=== PATIENT | female | born 1935 | race Caucasian/White ===

== ENCOUNTER 2020-04-08 20:40 | Inpatient (IN) ==
[2020-04-08] MEDS ORDERED: SODIUM CHLORIDE 0.9% 1,000 ML IV STA ×2 (21:04→23:11)
[2020-04-08 21:14] LABS: Basophils # 0.1 10*3/uL (0.0-0.2); Basophils % 0.4 % (0.0-0.8); Hematocrit 41.7 VOL% (35.7-47.0); Hemoglobin 13.8 GM/DL (12.0-16.0); Immature Granulocytes % 1.4 %; Immature Granulocytes Absolute 0.39 #; Lymphocytes % 7.3 % (21.3-54.2); Mean Corpuscular HGB Conc 33.1 GM/DL (32-36); Mean Corpuscular Volume 92.5 FL (87-102); Mean Platelet Volume 11.1 FL (9.6-12.0); Monocytes % 5.1 % (1.7-12.7); Neutrophils % 85.8 % (38.7-73.9); Platelet Count 207 T/CUMM (130-400); Red Blood Count 4.51 MC/CUMM (3.8-5.5); Red Cell Distribution Width 13.2 % (9.3-17.3); White Blood Count 27.3 T/CUMM (4-12)
[2020-04-08 21:25] LABS: INR 1.1; PT Patient Result 11.5 SECS (9.8-11.9); Partial Thromboplastin Time 27.1 SECS (23.9-33.8)
[2020-04-08 21:27] LABS: Lymphocytes 3 % (20-55); Segmented Neutrophils 93 % (50-85); Total Cells Counted 100
[2020-04-08 21:28] LABS: Stomatocytes 2+; Toxic Granulation 2+
[2020-04-08 21:29] LABS: Alanine Aminotransferase 28 U/L (13-56); Albumin 2.7 G/DL (3.4-5.0); Alkaline Phosphatase 70 U/L (45-117); Aspartate Amino Transferase 26 U/L (0-37); Blood Urea Nitrogen 31 MG/DL (7-18); Calcium 8.6 MG/DL (8.5-10.1); Estimated Glom Filtration Rate 32 ML/MIN; Glucose 173 MG/DL (74-106); Osmolality,Calculated 270.8 MOS/KG (273-304); Total Protein 6.6 G/DL (6.4-8.3); Troponin I < 0.015 NG/ML (0.00-0.045)
[2020-04-08 21:30] LABS: Platelet Estimate Normal
[2020-04-08 21:39] LABS: Thyroid Stimulating Hormone 0.565 uIU/ml (0.358-3.74)
[2020-04-08 22:52] LABS: Bacteria,Urine Many /HPF (Few); Bilirubin,Urine Negative (Negative); Blood, Urine Small mg/dL (Negative); Glucose,Urine (UA) Negative (Negative); Hyaline Casts,Urine 21 /LPF (0-3); Ketones,Urine 5 mg/dL (Negative); Mucus,Urine Occasional /LPF (Occasional); Nitrite,Urine Negative (Negative); Protein,Urine 100 MG/DL; RBC,Urine 22 /HPF (0-4); Squamous Epithelial Cell,Urine Occasional /HPF (0-10); Urine Appearance CLOUDY (Clear); Urine Color Amber (Yellow); Urine Specific Gravity 1.012 (1.001-1.035); Urine Urobilinogen < 2.0 EU/DL (0.2-1.0); WBC,Urine 274 /HPF (0-6)
[2020-04-08] MEDS ORDERED: LEVOFLOXACIN INJ 750 MG in PREMIX 1 EACH IV STA (23:02)
[2020-04-08] MEDS ORDERED: DILTIAZEM 25 MG/5 ML VIAL IV ONE (23:11)
[2020-04-08] MEDS ORDERED: DILTIAZEM 50 MG/10 ML VIAL IV STA (23:11)
[2020-04-09] MEDS ORDERED: ACETAMINOPHEN 325 MG TABLET PO PRN (00:40)
[2020-04-09] MEDS ORDERED: ONDANSETRON 4 MG/2 ML VIAL IV PRN (00:40)
[2020-04-09] MEDS: SODIUM CHLORIDE 0.9% 1,000 ML IV SCH ×3 (03:29→19:12)
[2020-04-09] MEDS ORDERED: GLUCAGON 1 MG VIAL IM PRN (07:14)
[2020-04-09] MEDS ORDERED: DEXTROSE 50% 25 GM/50 ML VIAL IV PRN (07:14)
[2020-04-09] MEDS ORDERED: SODIUM CHLORIDE 0.9% 1,000 ML IV STA (07:16)
[2020-04-09] MEDS: MEROPENEM 500 MG in SODIUM CHLORIDE 0.9% 100 ML IV SCH ×2 (07:45→19:07)
[2020-04-09] MEDS ORDERED: propofoL 200 MG/20 ML VIAL IV ONE (08:31)
[2020-04-09] MEDS ORDERED: PHENYLEPHRINE 1 MG/10 ML SYRINGE IV ONE (08:31)
[2020-04-09] MEDS ORDERED: LIDOCAINE 1% 5 ML VIAL ONE (08:32)
[2020-04-09] MEDS ORDERED: fentaNYL 100 MCG/2 ML VIAL ONE (08:32)
[2020-04-09] MEDS ORDERED: ePHEDrine 50 MG/ML VIAL ONE (08:32)
[2020-04-09] MEDS ORDERED: MIDAZOLAM 2 MG/2 ML VIAL ONE (08:32)
[2020-04-09] MEDS: INSULIN LISPRO 100 UNIT/ML SUBCUT SCH ×4 (08:34→21:54)
[2020-04-09] MEDS ORDERED: CYANOCOBALAMIN 1000 MCG/1 ML VIAL IM SCH (09:00)
[2020-04-09] MEDS ORDERED: ESMOLOL 100 MG/10 ML VIAL IV ONE (10:03)
[2020-04-09] MEDS ORDERED: ACETAMINOPHEN 650 MG SUPP RECTAL PRN (14:24)
[2020-04-09 14:43] LABS: Bacteria,Urine Many /HPF (Few); Bilirubin,Urine Negative (Negative); Blood, Urine Large mg/dL (Negative); Glucose,Urine (UA) Negative (Negative); Ketones,Urine 5 mg/dL (Negative); Nitrite,Urine Negative (Negative); Protein,Urine 100 MG/DL; RBC,Urine 1955 /HPF (0-4); Urine Appearance Slightly Hazy (Clear); Urine Color Red (Yellow); Urine Specific Gravity 1.013 (1.001-1.035); Urine Urobilinogen < 2.0 EU/DL (0.2-1.0); WBC,Urine 34 /HPF (0-6)
[2020-04-09] MEDS ORDERED: SODIUM CHLORIDE 0.9% 200 ML IV ONE (17:15)
[2020-04-09] MEDS ORDERED: NOREPINEPHRINE 8 MG in SODIUM CHLORIDE 0.9% 242 ML IV PRN (19:06)
[2020-04-09] MEDS ORDERED: NOREPINEPHRINE 4 MG/4 ML VIAL IV ONE (19:07)
[2020-04-09] MEDS: MULTIVITAMIN (BEROCCA) TABLET PO SCH (19:10)
[2020-04-09] MEDS: DOCUSATE SODIUM 100 MG CAPSULE PO SCH ×2 (19:11→20:11)
[2020-04-09] MEDS: LEVOTHYROXINE 75 MCG TABLET PO SCH (19:11)
[2020-04-09] MEDS: PANTOPRAZOLE 40 MG TABLET PO SCH (19:11)
[2020-04-09 19:54] LABS: Basophils # 0.1 10*3/uL (0.0-0.2); Basophils % 0.2 % (0.0-0.8); Hematocrit 31.8 VOL% (35.7-47.0); Hemoglobin 10.4 GM/DL (12.0-16.0); Immature Granulocytes % 5.8 %; Immature Granulocytes Absolute 1.74 #; Lymphocytes # 0.6 10*3/uL (1.4-4.0); Mean Corpuscular HGB Conc 32.7 GM/DL (32-36); Mean Corpuscular Volume 94.9 FL (87-102); Mean Platelet Volume 10.9 FL (9.6-12.0); Monocytes % 3.9 % (1.7-12.7); Neutrophils % 88.1 % (38.7-73.9); Platelet Count 143 T/CUMM (130-400); Red Blood Count 3.35 MC/CUMM (3.8-5.5); Red Cell Distribution Width 13.8 % (9.3-17.3); White Blood Count 30.2 T/CUMM (4-12)
[2020-04-09 19:59] LABS: Albumin 1.7 G/DL (3.4-5.0); Bilirubin,Total 0.7 MG/DL (0.2-1.0); Calcium 7.2 MG/DL (8.5-10.1); Osmolality,Calculated 291.3 MOS/KG (273-304); Total Protein 4.9 G/DL (6.4-8.3)
[2020-04-09] MEDS: GABAPENTIN 300 MG CAPSULE PO SCH (20:08)
[2020-04-09 20:22] LABS: Lymphocytes 1 % (20-55); Segmented Neutrophils 96 % (50-85); Total Cells Counted 100
[2020-04-09 20:24] LABS: Hypochromasia Slight; Macrocytosis 1+; Platelet Estimate Decreased; Polychromasia Slight
[2020-04-09] MEDS: INSULIN GLARGINE 100 UNIT/ML SUBCUT SCH (21:50)
[2020-04-09] MEDS ORDERED: SODIUM BICARBONATE 50 MEQ/50 ML VIAL IV ONE (21:51)
[2020-04-10] MEDS: MEROPENEM 500 MG in SODIUM CHLORIDE 0.9% 100 ML IV SCH ×3 (00:13→16:51)
[2020-04-10] MEDS: SODIUM CHLORIDE 0.9% 1,000 ML IV SCH ×2 (02:01→10:16)
[2020-04-10] MEDS: HYDROmorphone 2 MG/1 ML VIAL IV PRN (04:23)
[2020-04-10 06:07] LABS: Basophils # 0.1 10*3/uL (0.0-0.2); Basophils % 0.2 % (0.0-0.8); Eosinophils # 0.1 10*3/uL (0.0-0.87); Eosinophils % 0.3 % (0.00-10.9); Hematocrit 33.8 VOL% (35.7-47.0); Hemoglobin 10.7 GM/DL (12.0-16.0); Immature Granulocytes % 4.4 %; Immature Granulocytes Absolute 1.48 #; Lymphocytes # 1.4 10*3/uL (1.4-4.0); Lymphocytes % 4.1 % (21.3-54.2); Mean Corpuscular HGB Conc 31.7 GM/DL (32-36); Mean Corpuscular Volume 97.7 FL (87-102); Mean Platelet Volume 11.7 FL (9.6-12.0); Monocytes % 5.2 % (1.7-12.7); Neutrophils % 85.8 % (38.7-73.9); Platelet Count 146 T/CUMM (130-400); Red Blood Count 3.46 MC/CUMM (3.8-5.5); White Blood Count 33.5 T/CUMM (4-12)
[2020-04-10 06:28] LABS: Calcium 7.3 MG/DL (8.5-10.1); Osmolality,Calculated 297.8 MOS/KG (273-304)
[2020-04-10 06:44] LABS: Anisocytosis Slight; Band Neutrophils 4 % (0-10); Eosinophils 4 % (0-10); Lymphocytes 7 % (20-55); Macrocytosis Slight; Platelet Estimate Adequate; Segmented Neutrophils 78 % (50-85); Total Cells Counted 100
[2020-04-10] MEDS ORDERED: SODIUM BICARBONATE 50 MEQ/50 ML VIAL IV ONE (08:59)
[2020-04-10] MEDS ORDERED: CYANOCOBALAMIN 1000 MCG/1 ML VIAL IM SCH (09:00)
[2020-04-10] MEDS ORDERED: LEVOFLOXACIN INJ 750 MG in PREMIX 1 EACH IV SCH (09:00)
[2020-04-10] MEDS: MULTIVITAMIN (BEROCCA) TABLET PO SCH (09:32)
[2020-04-10] MEDS: DOCUSATE SODIUM 100 MG CAPSULE PO SCH ×2 (09:32→20:52)
[2020-04-10] MEDS: LEVOTHYROXINE 75 MCG TABLET PO SCH (09:32)
[2020-04-10] MEDS: PANTOPRAZOLE 40 MG TABLET PO SCH (09:32)
[2020-04-10] MEDS: INSULIN LISPRO 100 UNIT/ML SUBCUT SCH ×4 (10:32→20:52)
[2020-04-10] MEDS: SODIUM BICARB INJ 50 MEQ in SODIUM CHLORIDE 0.45% 1,000 ML IV SCH ×3 (10:36→20:52)
[2020-04-10] MEDS: INSULIN GLARGINE 100 UNIT/ML SUBCUT SCH (20:53)
[2020-04-10] MEDS: GABAPENTIN 300 MG CAPSULE PO SCH (20:53)
[2020-04-11] MEDS: MEROPENEM 500 MG in SODIUM CHLORIDE 0.9% 100 ML IV SCH ×4 (00:20→23:49)
[2020-04-11] MEDS: SODIUM BICARB INJ 50 MEQ in SODIUM CHLORIDE 0.45% 1,000 ML IV SCH ×2 (02:20→05:55)
[2020-04-11 04:52] LABS: Basophils # 0.1 10*3/uL (0.0-0.2); Basophils % 0.3 % (0.0-0.8); Eosinophils # 0.3 10*3/uL (0.0-0.87); Eosinophils % 1.3 % (0.00-10.9); Hematocrit 33.2 VOL% (35.7-47.0); Immature Granulocytes % 1.6 %; Immature Granulocytes Absolute 0.35 #; Lymphocytes % 4.7 % (21.3-54.2); Mean Corpuscular HGB Conc 33.1 GM/DL (32-36); Mean Corpuscular Volume 93.5 FL (87-102); Mean Platelet Volume 11.4 FL (9.6-12.0); Monocytes % 7.5 % (1.7-12.7); Neutrophils % 84.6 % (38.7-73.9); Platelet Count 149 T/CUMM (130-400); Red Blood Count 3.55 MC/CUMM (3.8-5.5); Red Cell Distribution Width 13.6 % (9.3-17.3)
[2020-04-11 05:28] LABS: Band Neutrophils 2 % (0-10); Eosinophils 2 % (0-10); Hypochromasia Slight; Lymphocytes 7 % (20-55); Segmented Neutrophils 84 % (50-85); Total Cells Counted 100
[2020-04-11 05:29] LABS: Macrocytosis Slight; Platelet Estimate Adequate
[2020-04-11 05:34] LABS: Albumin 1.8 G/DL (3.4-5.0); Bilirubin,Total 0.8 MG/DL (0.2-1.0); Calcium 7.5 MG/DL (8.5-10.1); Osmolality,Calculated 291.8 MOS/KG (273-304); Total Protein 5.2 G/DL (6.4-8.3)
[2020-04-11] MEDS: INSULIN LISPRO 100 UNIT/ML SUBCUT SCH ×4 (07:37→21:54)
[2020-04-11] MEDS: LEVOTHYROXINE 75 MCG TABLET PO SCH (08:33)
[2020-04-11] MEDS: DOCUSATE SODIUM 100 MG CAPSULE PO SCH ×2 (08:33→20:31)
[2020-04-11] MEDS: PANTOPRAZOLE 40 MG TABLET PO SCH (08:33)
[2020-04-11] MEDS: MULTIVITAMIN (BEROCCA) TABLET PO SCH (08:33)
[2020-04-11] MEDS: LACTATED RINGERS 1,000 ML IV SCH ×2 (08:33→21:44)
[2020-04-11] MEDS: GABAPENTIN 300 MG CAPSULE PO SCH (20:32)
[2020-04-11] MEDS: INSULIN GLARGINE 100 UNIT/ML SUBCUT SCH (21:47)
[2020-04-12 05:56] LABS: Basophils % 0.3 % (0.0-0.8); Eosinophils # 0.4 10*3/uL (0.0-0.87); Eosinophils % 2.8 % (0.00-10.9); Hematocrit 30.1 VOL% (35.7-47.0); Immature Granulocytes % 1.6 %; Immature Granulocytes Absolute 0.23 #; Lymphocytes # 2.2 10*3/uL (1.4-4.0); Mean Corpuscular HGB Conc 33.2 GM/DL (32-36); Mean Corpuscular Volume 92.6 FL (87-102); Mean Platelet Volume 11.2 FL (9.6-12.0); Monocytes % 10.5 % (1.7-12.7); Neutrophils % 69.8 % (38.7-73.9); Platelet Count 144 T/CUMM (130-400); Red Blood Count 3.25 MC/CUMM (3.8-5.5); Red Cell Distribution Width 13.5 % (9.3-17.3); White Blood Count 14.5 T/CUMM (4-12)
[2020-04-12] MEDS: LEVOTHYROXINE 88 MCG TABLET PO SCH (05:57)
[2020-04-12 06:15] LABS: Albumin 1.6 G/DL (3.4-5.0); Bilirubin,Total 0.8 MG/DL (0.2-1.0); Osmolality,Calculated 290.7 MOS/KG (273-304); Total Protein 4.5 G/DL (6.4-8.3)
[2020-04-12] MEDS: INSULIN LISPRO 100 UNIT/ML SUBCUT SCH ×4 (10:13→21:20)
[2020-04-12] MEDS: DOCUSATE SODIUM 100 MG CAPSULE PO SCH ×2 (10:14→21:19)
[2020-04-12] MEDS: PANTOPRAZOLE 40 MG TABLET PO SCH (10:14)
[2020-04-12] MEDS: MULTIVITAMIN (BEROCCA) TABLET PO SCH (10:14)
[2020-04-12] MEDS: cefTRIAXone 1,000 MG in SYRINGE 1 EACH IV SCH (10:20)
[2020-04-12] MEDS: LACTATED RINGERS 1,000 ML IV SCH ×2 (11:08→23:54)
[2020-04-12] MEDS: GABAPENTIN 300 MG CAPSULE PO SCH (21:19)
[2020-04-12] MEDS: INSULIN GLARGINE 100 UNIT/ML SUBCUT SCH (21:19)
[2020-04-13 04:24] LABS: Basophils # 0.1 10*3/uL (0.0-0.2); Basophils % 0.6 % (0.0-0.8); Eosinophils # 0.4 10*3/uL (0.0-0.87); Eosinophils % 2.9 % (0.00-10.9); Hematocrit 31.9 VOL% (35.7-47.0); Hemoglobin 10.5 GM/DL (12.0-16.0); Immature Granulocytes % 1.9 %; Immature Granulocytes Absolute 0.26 #; Lymphocytes % 14.5 % (21.3-54.2); Mean Corpuscular HGB Conc 32.9 GM/DL (32-36); Mean Corpuscular Volume 93.8 FL (87-102); Mean Platelet Volume 11.2 FL (9.6-12.0); Monocytes % 7.4 % (1.7-12.7); Neutrophils % 72.7 % (38.7-73.9); Platelet Count 161 T/CUMM (130-400); Red Cell Distribution Width 13.2 % (9.3-17.3); White Blood Count 13.6 T/CUMM (4-12)
[2020-04-13 04:49] LABS: Albumin 1.6 G/DL (3.4-5.0); Calcium 8.2 MG/DL (8.5-10.1); Osmolality,Calculated 290.6 MOS/KG (273-304); Total Protein 4.5 G/DL (6.4-8.3)
[2020-04-13 05:04] LABS: Band Neutrophils 3 % (0-10); Eosinophils 2 % (0-10); Lymphocytes 16 % (20-55); Platelet Estimate Normal; Segmented Neutrophils 68 % (50-85); Total Cells Counted 100
[2020-04-13 05:05] LABS: Hypochromasia Slight
[2020-04-13] MEDS: LEVOTHYROXINE 88 MCG TABLET PO SCH (05:46)
[2020-04-13] MEDS: INSULIN LISPRO 100 UNIT/ML SUBCUT SCH ×4 (08:54→20:02)
[2020-04-13] MEDS: DOCUSATE SODIUM 100 MG CAPSULE PO SCH ×2 (09:57→20:00)
[2020-04-13] MEDS: cefTRIAXone 1,000 MG in SYRINGE 1 EACH IV SCH (09:57)
[2020-04-13] MEDS: NYSTATIN 500,000 UNIT/5 ML UDCUP SWISH/SWAL SCH ×4 (09:58→20:00)
[2020-04-13] MEDS: PANTOPRAZOLE 40 MG TABLET PO SCH (09:59)
[2020-04-13] MEDS: MULTIVITAMIN (BEROCCA) TABLET PO SCH (09:59)
[2020-04-13] MEDS: LACTATED RINGERS 1,000 ML IV SCH (13:11)
[2020-04-13] MEDS: GABAPENTIN 300 MG CAPSULE PO SCH (20:00)
[2020-04-13] MEDS: INSULIN GLARGINE 100 UNIT/ML SUBCUT SCH (20:03)
[2020-04-14] MEDS: LACTATED RINGERS 1,000 ML IV SCH ×2 (02:53→16:13)
[2020-04-14] MEDS: LEVOTHYROXINE 88 MCG TABLET PO SCH (06:13)
[2020-04-14] MEDS: NYSTATIN 500,000 UNIT/5 ML UDCUP SWISH/SWAL SCH ×4 (08:15→22:06)
[2020-04-14] MEDS: INSULIN LISPRO 100 UNIT/ML SUBCUT SCH ×4 (08:17→22:11)
[2020-04-14] MEDS: cefTRIAXone 1,000 MG in SYRINGE 1 EACH IV SCH (08:26)
[2020-04-14] MEDS: MULTIVITAMIN (BEROCCA) TABLET PO SCH (08:27)
[2020-04-14] MEDS: PANTOPRAZOLE 40 MG TABLET PO SCH (08:27)
[2020-04-14] MEDS: DOCUSATE SODIUM 100 MG CAPSULE PO SCH ×2 (08:27→22:06)
[2020-04-14] MEDS: BISACODYL 5 MG TABLET PO PRN (13:05)
[2020-04-14] MEDS: GABAPENTIN 300 MG CAPSULE PO SCH (22:06)
[2020-04-14] MEDS: INSULIN GLARGINE 100 UNIT/ML SUBCUT SCH (22:06)
[2020-04-15] MEDS: LACTATED RINGERS 1,000 ML IV SCH ×2 (05:40→19:28)
[2020-04-15 05:43] LABS: Basophils # 0.1 10*3/uL (0.0-0.2); Basophils % 0.8 % (0.0-0.8); Eosinophils # 0.5 10*3/uL (0.0-0.87); Hematocrit 32.1 VOL% (35.7-47.0); Hemoglobin 10.5 GM/DL (12.0-16.0); Immature Granulocytes % 6.8 %; Immature Granulocytes Absolute 0.72 #; Lymphocytes % 19.1 % (21.3-54.2); Mean Corpuscular HGB Conc 32.7 GM/DL (32-36); Mean Corpuscular Volume 93.9 FL (87-102); Mean Platelet Volume 10.5 FL (9.6-12.0); Monocytes % 9.1 % (1.7-12.7); Neutrophils % 59.2 % (38.7-73.9); Platelet Count 227 T/CUMM (130-400); Red Blood Count 3.42 MC/CUMM (3.8-5.5); Red Cell Distribution Width 13.2 % (9.3-17.3); White Blood Count 10.7 T/CUMM (4-12)
[2020-04-15] MEDS: LEVOTHYROXINE 88 MCG TABLET PO SCH (05:44)
[2020-04-15 06:07] LABS: Calcium 8.1 MG/DL (8.5-10.1); Osmolality,Calculated 284.7 MOS/KG (273-304)
[2020-04-15 06:14] LABS: Band Neutrophils 1 % (0-10); Eosinophils 6 % (0-10); Hypochromasia 1+; Lymphocytes 20 % (20-55); Metamyelocytes 1 %; Nucleated Red Blood Cells 1 (0-5); Segmented Neutrophils 65 % (50-85); Total Cells Counted 100
[2020-04-15 06:15] LABS: Microcytosis Slight
[2020-04-15 06:16] LABS: Platelet Estimate Normal
[2020-04-15 06:18] LABS: Atypical Lymphocytes Few
[2020-04-15] MEDS ORDERED: BISACODYL 10 MG SUPP RECTAL PRN (07:28)
[2020-04-15] MEDS: INSULIN LISPRO 100 UNIT/ML SUBCUT SCH ×4 (08:35→20:52)
[2020-04-15] MEDS: MULTIVITAMIN (BEROCCA) TABLET PO SCH (08:36)
[2020-04-15] MEDS: cefTRIAXone 1,000 MG in SYRINGE 1 EACH IV SCH (08:36)
[2020-04-15] MEDS: DOCUSATE SODIUM 100 MG CAPSULE PO SCH ×2 (08:36→20:52)
[2020-04-15] MEDS: PANTOPRAZOLE 40 MG TABLET PO SCH (08:36)
[2020-04-15] MEDS: NYSTATIN 500,000 UNIT/5 ML UDCUP SWISH/SWAL SCH ×4 (08:41→20:52)
[2020-04-15] MEDS ORDERED: HYDROCORTISONE 2.5% RECTAL CREAM 30 GM TUBE TOP PRN (12:58)
[2020-04-15] MEDS ORDERED: SODIUM PHOSPHATE ENEMA 133 ML BOTTLE RECTAL PRN (13:03)
[2020-04-15] MEDS: POTASSIUM CHLORIDE 20 MEQ TABLET PO PRN ×3 (13:58→18:10)
[2020-04-15] MEDS: BISACODYL 5 MG TABLET PO PRN (14:02)
[2020-04-15] MEDS: HYDROmorphone 2 MG/1 ML VIAL IV PRN (20:23)
[2020-04-15] MEDS: GABAPENTIN 300 MG CAPSULE PO SCH (20:52)
[2020-04-15] MEDS: INSULIN GLARGINE 100 UNIT/ML SUBCUT SCH (20:52)
[2020-04-16] MEDS: LEVOTHYROXINE 88 MCG TABLET PO SCH (05:38)
[2020-04-16] MEDS: cefTRIAXone 1,000 MG in SYRINGE 1 EACH IV SCH (08:44)
[2020-04-16] MEDS: POTASSIUM CHLORIDE 20 MEQ TABLET PO PRN (08:47)
[2020-04-16] MEDS: MULTIVITAMIN (BEROCCA) TABLET PO SCH (08:47)
[2020-04-16] MEDS: INSULIN LISPRO 100 UNIT/ML SUBCUT SCH (08:48)
[2020-04-16] MEDS: NYSTATIN 500,000 UNIT/5 ML UDCUP SWISH/SWAL SCH (08:48)
[2020-04-16] MEDS: DOCUSATE SODIUM 100 MG CAPSULE PO SCH (08:50)
[2020-04-16] MEDS: PANTOPRAZOLE 40 MG TABLET PO SCH (08:50)
[2020-04-16 12:41] VITALS: BP 125/68
== END 2020-04-16 14:07 | disposition home health service (06) | DRG 871 ==
LOC: N.ED 20:40 → SUATTDRO 23:14 → N.EDINP 23:14 → N.ICU 04-09 13:19 → N.5E 04-11 10:01
PROVIDERS: ADMIT Family Medicine; ATTEND Family Medicine

== ENCOUNTER 2020-07-10 05:15 | Inpatient (IN) ==
[2020-07-04 11:35] LABS: Basophils # 0.1 10*3/uL (0.0-0.2); Eosinophils # 0.4 10*3/uL (0.0-0.87); Eosinophils % 4.5 % (0.00-10.9); Hematocrit 39.3 VOL% (35.7-47.0); Hemoglobin 12.4 GM/DL (12.0-16.0); Immature Granulocytes % 1.4 %; Immature Granulocytes Absolute 0.13 #; Lymphocytes # 3.5 10*3/uL (1.4-4.0); Lymphocytes % 36.5 % (21.3-54.2); Mean Corpuscular HGB Conc 31.6 GM/DL (32-36); Mean Corpuscular Volume 94.7 FL (87-102); Mean Platelet Volume 11.2 FL (9.6-12.0); Monocytes % 9.4 % (1.7-12.7); Neutrophils % 47.2 % (38.7-73.9); Platelet Count 328 T/CUMM (130-400); Red Blood Count 4.15 MC/CUMM (3.8-5.5); Red Cell Distribution Width 13.7 % (9.3-17.3); White Blood Count 9.6 T/CUMM (4-12)
[2020-07-04 11:44] LABS: Calcium 9.1 MG/DL (8.5-10.1); Osmolality,Calculated 276.5 MOS/KG (273-304); Potassium 4.7 MMOL/L (3.5-5.1)
[2020-07-04 16:12] LABS: Bacteria,Urine Occasional /HPF (Few); Bilirubin,Urine Negative (Negative); Blood, Urine Moderate mg/dL (Negative); Glucose,Urine (UA) Negative (Negative); Ketones,Urine Negative (Negative); Nitrite,Urine Negative (Negative); Protein,Urine 30 MG/DL; RBC,Urine 7 /HPF (0-4); Urine Appearance Slightly Hazy (Clear); Urine Color Yellow (Yellow); Urine Specific Gravity 1.004 (1.001-1.035); Urine Urobilinogen < 2.0 EU/DL (0.2-1.0); WBC,Urine 109 /HPF (0-6)
[2020-07-10] MEDS ORDERED: TOBRAMYCIN 80 MG/2 ML VIAL ONE (05:59)
[2020-07-10] MEDS ORDERED: TOBRAMYCIN INJ 80 MG in SODIUM CHLORIDE 0.9% 100 ML IV ONE (06:30)
[2020-07-10] MEDS: LACTATED RINGERS 1,000 ML IV SCH ×2 (06:39→10:19)
[2020-07-10] MEDS ORDERED: propofoL 200 MG/20 ML VIAL IV ONE (07:34)
[2020-07-10] MEDS ORDERED: LIDOCAINE 2% 5 ML VIAL ONE (07:34)
[2020-07-10] MEDS ORDERED: ETOMIDATE 40 MG/20 ML VIAL IV ONE (07:34)
[2020-07-10] MEDS ORDERED: ROCURONIUM 50 MG/5 ML VIAL IV ONE (07:34)
[2020-07-10] MEDS ORDERED: SEVOFLURANE 1 UNIT/15 MINUTE INH ONE ×6 (07:34→09:31)
[2020-07-10] MEDS ORDERED: fentaNYL 100 MCG/2 ML VIAL ONE (07:35)
[2020-07-10] MEDS ORDERED: ePHEDrine 50 MG/ML VIAL ONE (08:09)
[2020-07-10] MEDS ORDERED: NEOSTIGMINE 10 MG/10 ML VIAL ONE (09:30)
[2020-07-10] MEDS ORDERED: ONDANSETRON 4 MG/2 ML VIAL ONE (09:30)
[2020-07-10] MEDS ORDERED: GLYCOPYRROLATE 0.4 MG/2 ML VIAL ONE (09:30)
[2020-07-10] MEDS ORDERED: ONDANSETRON 4 MG/2 ML VIAL IV PRN ×2 (09:42→10:24)
[2020-07-10] MEDS ORDERED: MEPERIDINE 25 MG/1 ML VIAL IM PRN (09:44)
[2020-07-10] MEDS ORDERED: PHENYLEPHRINE DRIP 20 MG/250 ML PREMIX IV ONE (09:58)
[2020-07-10] MEDS ORDERED: HYDROmorphone 2 MG/1 ML VIAL ONE (10:05)
[2020-07-10] MEDS: HYDROmorphone 2 MG/1 ML VIAL IV PRN ×2 (10:13→10:20)
[2020-07-10 10:38] LABS: Bacteria,Urine Occasional /HPF (Few); Bilirubin,Urine Negative (Negative); Blood, Urine Negative (Negative); Glucose,Urine (UA) Negative (Negative); Ketones,Urine Negative (Negative); Nitrite,Urine Negative (Negative); Protein,Urine Negative; RBC,Urine 2 /HPF (0-4); Urine Appearance CLEAR (Clear); Urine Color Straw (Yellow); Urine Specific Gravity 1.005 (1.001-1.035); Urine Urobilinogen < 2.0 EU/DL (0.2-1.0); WBC,Urine 5 /HPF (0-6)
[2020-07-10] MEDS: OMEGA 3 ACID ETHYL ESTERS 1 GM CAPSULE PO SCH ×3 (13:00→23:31)
[2020-07-10] MEDS: ACETAMINOPHEN 325 MG TABLET PO PRN ×2 (17:05→23:31)
[2020-07-10] MEDS: INSULIN GLARGINE 100 UNIT/ML SUBCUT SCH (23:30)
[2020-07-10] MEDS: GABAPENTIN 300 MG CAPSULE PO SCH (23:31)
[2020-07-10] MEDS: SODIUM CHLORIDE 0.45% 1,000 ML IV SCH (23:44)
[2020-07-11] MEDS: SODIUM CHLORIDE 0.45% 1,000 ML IV SCH (03:20)
[2020-07-11 06:26] LABS: Basophils # 0.1 10*3/uL (0.0-0.2); Basophils % 0.4 % (0.0-0.8); Eosinophils # 0.2 10*3/uL (0.0-0.87); Eosinophils % 1.4 % (0.00-10.9); Hematocrit 35.8 VOL% (35.7-47.0); Hemoglobin 11.5 GM/DL (12.0-16.0); Immature Granulocytes % 0.9 %; Immature Granulocytes Absolute 0.12 #; Lymphocytes # 2.2 10*3/uL (1.4-4.0); Lymphocytes % 16.3 % (21.3-54.2); Mean Corpuscular HGB Conc 32.1 GM/DL (32-36); Mean Corpuscular Volume 94.5 FL (87-102); Mean Platelet Volume 10.7 FL (9.6-12.0); Monocytes % 9.3 % (1.7-12.7); Neutrophils % 71.7 % (38.7-73.9); Platelet Count 240 T/CUMM (130-400); Red Blood Count 3.79 MC/CUMM (3.8-5.5); Red Cell Distribution Width 14.3 % (9.3-17.3); White Blood Count 13.3 T/CUMM (4-12)
[2020-07-11 07:09] LABS: Calcium 8.4 MG/DL (8.5-10.1); Osmolality,Calculated 276.5 MOS/KG (273-304)
[2020-07-11] MEDS: hydroCHLOROthiazide 12.5 MG CAPSULE PO SCH (09:46)
[2020-07-11] MEDS: OMEGA 3 ACID ETHYL ESTERS 1 GM CAPSULE PO SCH ×4 (09:47→20:00)
[2020-07-11] MEDS: metFORMIN 500 MG TABLET PO SCH (09:47)
[2020-07-11] MEDS: ACETAMINOPHEN 325 MG TABLET PO PRN ×2 (09:47→20:00)
[2020-07-11] MEDS: GLIMEPIRIDE 4 MG TABLET PO SCH (09:48)
[2020-07-11] MEDS: LEVOTHYROXINE 88 MCG TABLET PO SCH (09:48)
[2020-07-11] MEDS: MULTIVITAMIN (BEROCCA) TABLET PO SCH (09:48)
[2020-07-11] MEDS: lisinopriL 10 MG TABLET PO SCH (09:48)
[2020-07-11] MEDS: MULTIVITAMIN (CENTRUM) TABLET PO SCH (09:49)
[2020-07-11] MEDS: GABAPENTIN 300 MG CAPSULE PO SCH (20:01)
[2020-07-11] MEDS: INSULIN GLARGINE 100 UNIT/ML SUBCUT SCH (21:36)
[2020-07-12 06:12] VITALS: BP 114/56
[2020-07-12] MEDS: GLIMEPIRIDE 4 MG TABLET PO SCH (09:30)
[2020-07-12] MEDS: OMEGA 3 ACID ETHYL ESTERS 1 GM CAPSULE PO SCH (09:45)
[2020-07-12] MEDS: MULTIVITAMIN (BEROCCA) TABLET PO SCH (09:45)
[2020-07-12] MEDS: hydroCHLOROthiazide 12.5 MG CAPSULE PO SCH (09:45)
[2020-07-12] MEDS: LEVOTHYROXINE 88 MCG TABLET PO SCH (09:45)
[2020-07-12] MEDS: MULTIVITAMIN (CENTRUM) TABLET PO SCH (09:45)
[2020-07-12] MEDS: metFORMIN 500 MG TABLET PO SCH (09:45)
[2020-07-12] MEDS: lisinopriL 10 MG TABLET PO SCH (09:45)
[2020-07-13 12:42] LABS: Stone Source Kidney
[2020-07-17] MEDS ORDERED: CYANOCOBALAMIN 1000 MCG/1 ML VIAL IM SCH (09:00)
== END 2020-07-12 11:00 | disposition home health service (06) | DRG 670 ==
LOC: N.OR 05:15 → N.SDSINP 05:16 → N.4E 10:35
PROVIDERS: ADMIT Urology; ATTEND Urology